=== PATIENT | male | born 1950 | race Caucasian/White ===

== ENCOUNTER 2017-01-26 17:13 | Inpatient (IN) | payer MEDICARE, MEDICAID ==
[~2017-01-26] VITALS: Ht 167.6 cm; Wt 75.3 kg
[2017-01-26 18:00] VITALS: BP 151/88
--- NOTE | 2017-01-26 18:44 | NUR ---
TELE-RN ADMITTING NOTES ADMITTED PT TO UNIT [facility]IA [facility] DIRECT FROM [facility]. A/O X3 AND VERBALLY RESPONSIVE. DR CANNON MADE AWARE OF PT ARRIVAL TO UNIT. PT WITH DIAGNOSIS OF SOB AND AFIB WITH SIGNIFICANT DIAGNOSIS OF CKD, CAD, CHF, ASTHMA, AFIB, GOUT, WITH HX OF CVA IN THE PAST. PT PLACED ON 02 VIA N/C AT 2LPM, NOTED WITH MILD SOB WITH SP02 OF 96%. V/S TAKEN BP 151/88MMHG, HR 90, R 19, T 98.8F. PT ON TELE MONITORING WITH CURRENT READINGS OF AFIB WITH PAC'S WITH HR B/W 90-102, NO C/O CHEST PAIN VOICED. PT NOTED WITH OCCASIONAL COUGH WITH PINKISH TINGED SPUTUM. BELONGINGS CHECKED, COUNTED AND SIGNED FORM BY PT. PT ORIENTED TO UNIT. PLACED BED IN LOW/LOCKED POSITION. CALL LIGHT KEPT WITHIN REACH. ALL SAFETY MEASURES KEPT IN PLACED. WILL CONTINUE TO MONITOR PT AND WILL ENDORSED TO HOME HEALTH RN FOR MAHAMED.
[2017-01-26] MEDS ORDERED: DIGO125T PO (18:46)
[2017-01-26] MEDS ORDERED: FURO20TA4 PO (18:46)
[2017-01-26] MEDS ORDERED: COLC0.6C3 PO (18:46)
[2017-01-26] MEDS ORDERED: AMLO10TA2 PO (18:46)
[2017-01-26] MEDS ORDERED: ATOR40TA PO (18:46)
[2017-01-26] MEDS ORDERED: ALBU18HF2 IH (18:46)
[2017-01-26] MEDS ORDERED: APIX2.5T PO (18:46)
[2017-01-26] MEDS ORDERED: METO25TA3 PO (18:46)
[2017-01-26] MEDS ORDERED: LISI-607 PO (18:46)
[2017-01-26] MEDS ORDERED: FLUT1DIS IH (18:46)
[2017-01-26] MEDS ORDERED: FLUT16SP16 NS (18:46)
[2017-01-26] MEDS ORDERED: ISOS60TA4 PO (18:46)
[2017-01-26 18:48] VITALS: BP 151/88
[2017-01-26] MEDS ORDERED: MAG HYDROX/AL HYDROX/SIMETH 30 ML UDC PO PRN (19:00)
[2017-01-26] MEDS ORDERED: ENOXAPARIN SODIUM 40 MG/0.4 ML DISP.SYRIN SQ SCH (19:00)
[2017-01-26] MEDS ORDERED: ACETAMINOPHEN 325 MG TABLET PO PRN (19:00)
[2017-01-26] MEDS ORDERED: ZOLPIDEM TARTRATE 5 MG TABLET PO PRN (19:00)
[2017-01-26] MEDS ORDERED: HYDROCODONE/APAP 5/325MG 1 EACH TABLET PO PRN (19:00)
[2017-01-26] MEDS ORDERED: Z GUARD REMEDY 2 OZ OINT TP PRN (19:00)
[2017-01-26] MEDS ORDERED: ONDANSETRON HCL/PF 4 MG/2 ML VIAL IVP PRN (19:00)
[2017-01-26] MEDS ORDERED: MAGNESIUM HYDROXIDE 30 ML UDC PO PRN (19:00)
--- NOTE | 2017-01-26 19:50 | NUR ---
DIRECTOR STRATEGIC ACCOUNT MANAGEMENT NOTE: PATIENT RESTING IN BED, NO ACUTE DISTRESS NOTED. BREATHING EVEN AND UNLABORED, NO SOB NOTED AT THIS TIME. OXYGEN IN PLACE VIA NC AT 2 LPM. TELE READING AFIB UNCONTROLLED, WITH HR RANGING FROM 100 TO 120.IV TO RAC IN PLACE. CALLED PHARMACY TO VERIFY MEDICATIONS AND IF BLOOD PRESSURE MEDICATIONS ARE TO START TONIGHT. PATIENT BLOOD PRESSURE 177/98, HR 110, PATIENT DENIES HYPERTENSIVE SYMPTOMS AT THIS TIME. BED LOCKED AND IN LOWEST POSITION, CALL LIGHT IN REACH. WILL CONTINUE TO MONITOR.
[2017-01-26] MEDS: METOPROLOL SUCCINATE 25 MG TAB.SR.24H PO SCH (20:14)
[2017-01-26] MEDS: LISINOPRIL (5MG) 5 MG TABLET PO SCH (20:14)
[2017-01-26 20:18] VITALS: BP 177/98
[2017-01-26] MEDS ORDERED: ALBUTEROL FS 2.5 MG/3 ML VIAL.NEB ONE (20:38)
[2017-01-26] MEDS: CEFTRIAXONE 1 G in IV D5W 50 ML IV SCH (21:09)
[2017-01-26 22:00] VITALS: BP 168/107
[2017-01-26] MEDS: AZITHROMYCIN 500 MG in IV D5W 250 ML IV SCH (22:19)
--- NOTE | 2017-01-26 22:30 | NUR ---
MARKETING OPERATIONS SPECIALIST NOTE: PATIENT COMPLAINS OF PAIN TO BACK 09/26, NORCO 5/325MG ORAL GIVEN PER MD ORDER. WILL CONTINUE TO MONITOR.
[2017-01-26] MEDS ORDERED: FUROSEMIDE 40 MG/4 ML VIAL IV ONE (23:00)
[2017-01-26] MEDS ORDERED: FUROSEMIDE 40 MG/4 ML VIAL ONE (23:29)
--- NOTE | 2017-01-26 23:30 | NUR ---
BOOKKEEPING CLERK NOTE: PATIENT TROPONIN LEVEL 0.845 AND BLOOD PRESSURE ELEVATED AT 168/110, HR 100-120. CALLED THE [facility], SPOKE TO KELSEA RALPH REGARDING TROPONIN LEVEL AND BLOOD PRESSURE. RECEIVE ORDER FOR LASIX 40MG IV PUSH ONCE. ORDER NOTED AND CARRIED OUT. INFORMED KELSEA RALPH ALSO THAT PATIENT HAS ANOTHER TROPONIN LEVEL TO BE DRAWN AT 0100, AND PER KELSEA RALPH NO NEED TO CALL UNLESS LEVEL IS GREATER THAT 1.1. WILL CONTINUE TO MONITOR.
[2017-01-26 23:57] VITALS: BP 127/73
--- NOTE | 2017-01-27 01:27 | NUR ---
RN NOTES: RECEIVED CRITICAL LAB VALUE, TROPONIN: 0.813, DECREASED SLIGHTLY FROM EARLIER TROP RESULT OF 0.845.
[2017-01-27] MEDS ORDERED: ALBUTEROL FS 2.5 MG/3 ML VIAL.NEB NEB PRN (01:30)
[2017-01-27 03:53] VITALS: BP 153/97
--- NOTE | 2017-01-27 06:10 | NUR ---
HOUSE REPAIRER NOTE: PATIENT RESTING IN BED, NO ACUTE DISTRESS NOTED. BREATHING EVEN AND UNLABORED, NO SOB NOTED AT THIS TIME. OXYGEN IN PLACE VIA NC AT 2 LPM. TELE READING AFIB WITH HR RANGING FROM 80 TO 120. IV TO RAC IN PLACE. BED LOCKED AND IN LOWEST POSITION, CALL LIGHT IN REACH. WILL ENDORSE TO DAY NURSE TO CONTINUE WITH PLAN OF CARE.
[2017-01-27 07:10] VITALS: BP 157/94
[2017-01-27 07:54] LABS: BASOPHILS % (AUTO) 0.1 % (0.0-2.0); EOSINOPHILS # (AUTO) 0.4 /CMM (0.0-0.7); EOSINOPHILS % (AUTO) 4.3 % (0.0-6.0); HEMATOCRIT 44 % (39-51); LYMPHOCYTES # (AUTO) 0.9 /CMM (0.8-4.8); LYMPHOCYTES % (AUTO) 10.3 % (20.0-44.0); MEAN CORPUSCULAR HEMOGLOBIN 28 PG (26.0-33.0); MEAN CORPUSCULAR HGB CONC 32 g/dl (31.0-36.0); MEAN CORPUSCULAR VOLUME 87 fL (80-96); MONOCYTES # (AUTO) 0.6 /CMM (0.1-1.30); MONOCYTES % (AUTO) 7.3 % (2.0-12.0); NEUTROPHILS # (AUTO) 6.5 /CMM (1.8-8.9); PLATELET COUNT (AUTO) 186 /CMM (150-450); RDW COEFFICIENT OF VARIATION 17.2 (11.5-15.0); RED BLOOD CELL COUNT(AUTO) 4.99 MIL/uL (4.5-6.0); WHITE BLOOD COUNT (AUTO) 8.3 K/uL (4.3-11.0)
[2017-01-27 08:00] VITALS: BP 152/92
--- NOTE | 2017-01-27 08:00 | NUR ---
HEALTH SCIENCES MANAGER AM NOTES PATIENT RESTING IN BED, NO ACUTE DISTRESS NOTED. BREATHING EVEN AND UNLABORED, NO SOB OR C/O PAIN AT THIS TIME. OXYGEN IN PLACE VIA NC AT 2 LPM. TELE READING AFIB UNCONTROLLED, WITH HR RANGING FROM 100 TO 120.IV TO RAC IN PLACE. BED LOCKED AND IN LOWEST POSITION, CALL LIGHT IN REACH. WILL CONTINUE TO MONITOR.
[2017-01-27 08:15] LABS: CALCIUM, SERUM 9.4 mg/dL (8.5-10.1); MAGNESIUM 1.7 mg/dL (1.8-2.4); PHOSPHORUS 3.9 mg/dL (2.5-4.9); POTASSIUM 3.6 mmol/L (3.5-5.1)
[2017-01-27 08:18] LABS: THYROID STIMULATING HORMONE 0.755 uIU/mL (0.358-3.74)
[2017-01-27] MEDS ORDERED: FUROSEMIDE 40 MG/4 ML VIAL IV SCH (09:00)
[2017-01-27] MEDS: FLUTICASONE/VILANTEROL 1 EACH BLST.W.DEV IH SCH (09:34)
[2017-01-27] MEDS: LISINOPRIL (5MG) 5 MG TABLET PO SCH (09:35)
[2017-01-27] MEDS: AMLODIPINE BESYLATE 10 MG TABLET PO SCH (09:35)
[2017-01-27] MEDS: FLUTICASONE PROPIONATE 16 GM BOTTLE NS SCH (09:36)
[2017-01-27] MEDS: ISOSORBIDE MONONITRATE (30MG) 30 MG TAB.SR.24H PO SCH (09:37)
[2017-01-27] MEDS: METOPROLOL SUCCINATE 25 MG TAB.SR.24H PO SCH (09:37)
[2017-01-27] MEDS ORDERED: Magnesium 1GM/D5W 100ML PREMIX 100 ML IV SCH (11:55)
[2017-01-27 12:00] VITALS: BP 116/67
[2017-01-27] MEDS: DIGOXIN 0.125 MG TABLET PO SCH (12:59)
--- NOTE | 2017-01-27 13:42 | NUR ---
Social service consult requested by outpatient case manager Umesh for possible homelessness. Pt. is a 66 year old male who was admitted to [facility] for pneumonia/Atrial flutter. SW met with pt. bedside. Pt. is alert and oriented x 4. Pt. was cooperative and pleasant with SW during the assessment. Pt. states he resides at [facility] located at [address] [place] [address]. [place] [id number] . Pt. states he has been residing there for the past four months. Prior to living there, pt. was residing in [place]. Pt. stated, he was evicted from [place] and ended up in [facility]. Pt. states he [place] not like the [place]. [facility] is assisting pt. in getting a voucher for permanent housing. Pt. denies using drugs and alcohol and smoking cigarettes or marijuana. Pt's emergency contact is his brother Be . Pt. denies suicidal and homicidal ideations and visual/auditory hallucinations at this time. Pt. does not have a history of psychiatric hospitalizations. Pt. will require taxi transportation upon discharge to [facility] located at [address] [place] [address]. [place] [id number]. No other social service needs are requested at this time. SW is available, if needed.
[2017-01-27 16:00] VITALS: BP 111/67
[2017-01-27] MEDS: ATORVASTATIN 40 MG TABLET PO SCH (17:59)
--- NOTE | 2017-01-27 19:30 | NUR ---
RN NOTES RECEIVED PATIENT IN BED ASLEEP, EASILY AROUSABLE, AO X 3, ABLE TO MAKE NEEDS KNOWN. NO ACUTE DISTRESS NOTED. DENIES ANY PAIN AT THIS TIME. IV SITE PATENT, INTACT; FLUSHED. ON LOW BED WITH BILATERAL UPPER SIDE RAILS UP. CALL LIGHT WITHIN EASY REACH. WILL CONTINUE TO MONITOR.
[2017-01-27 20:00] VITALS: BP 112/72
[2017-01-27] MEDS: CEFTRIAXONE 1 G in IV D5W 50 ML IV SCH (21:18)
[2017-01-27] MEDS: APIXABAN 2.5 MG TABLET PO SCH (21:18)
[2017-01-27] MEDS: AZITHROMYCIN 500 MG in IV D5W 250 ML IV SCH (22:50)
[2017-01-28] VITALS: BP 112/65
[2017-01-28 04:00] VITALS: BP 118/81
--- NOTE | 2017-01-28 06:10 | NUR ---
RN NOTES PATIENT ASLEEP, EASILY AROUSABLE. RESPIRATIONS EVEN. NO SIGNS OF PAIN NOTED. DUE MEDS GIVEN WITH NO ASE NOTED. NEEDS ATTENDED. SAFETY PRECAUTIONS AND COMFORT MEASURES IN PLACE. WILL GIVE REPORT TO DAY SHIFT FOR CONTINUITY OF CARE.
[2017-01-28 07:19] VITALS: BP_SYST 132; BP_SYST 156; BP_DIAS 72; BP_DIAS 80
[2017-01-28 07:41] LABS: BASOPHILS # (AUTO) 0.1 /CMM (0.0-0.2); BASOPHILS % (AUTO) 0.9 % (0.0-2.0); EOSINOPHILS # (AUTO) 0.4 /CMM (0.0-0.7); EOSINOPHILS % (AUTO) 5.9 % (0.0-6.0); HEMATOCRIT 43 % (39-51); LYMPHOCYTES # (AUTO) 0.8 /CMM (0.8-4.8); LYMPHOCYTES % (AUTO) 12.3 % (20.0-44.0); MEAN CORPUSCULAR HEMOGLOBIN 28 PG (26.0-33.0); MEAN CORPUSCULAR HGB CONC 33 g/dl (31.0-36.0); MEAN CORPUSCULAR VOLUME 87 fL (80-96); MONOCYTES # (AUTO) 0.7 /CMM (0.1-1.30); MONOCYTES % (AUTO) 10.4 % (2.0-12.0); NEUTROPHILS # (AUTO) 4.8 /CMM (1.8-8.9); NEUTROPHILS % (AUTO) 70.5 % (43.0-81.0); PLATELET COUNT (AUTO) 216 /CMM (150-450); RDW COEFFICIENT OF VARIATION 16.3 (11.5-15.0); RED BLOOD CELL COUNT(AUTO) 4.99 MIL/uL (4.5-6.0); WHITE BLOOD COUNT (AUTO) 6.8 K/uL (4.3-11.0)
--- NOTE | 2017-01-28 08:00 | NUR ---
RAILCAR CARPENTER AM NOTES PATIENT RESTING IN BED, NO ACUTE DISTRESS NOTED. BREATHING EVEN AND UNLABORED, NO SOB OR C/O PAIN AT THIS TIME. OXYGEN IN PLACE VIA NC AT 2 LPM. TELE READING AFIB UNCONTROLLED, WITH HR RANGING FROM 100 TO 120.IV TO RAC IN PLACE. BED LOCKED AND IN LOWEST POSITION, CALL LIGHT IN REACH. WILL CONTINUE TO MONITOR.
[2017-01-28 08:09] LABS: ALBUMIN 2.8 g/dL (3.4-5.0); BILIRUBIN,TOTAL 0.7 mg/dL (0.2-1.0); CALCIUM, SERUM 9.2 mg/dL (8.5-10.1); MAGNESIUM 2.3 mg/dL (1.8-2.4); PHOSPHORUS 3.4 mg/dL (2.5-4.9); POTASSIUM 3.6 mmol/L (3.5-5.1); TOTAL PROTEIN, SERUM 6.4 g/dL (6.4-8.2)
[2017-01-28 08:11] LABS: TROPONIN I 0.711 ng/mL (0.00-0.056)
[2017-01-28] MEDS: FLUTICASONE/VILANTEROL 1 EACH BLST.W.DEV IH SCH (09:14)
[2017-01-28] MEDS: ISOSORBIDE MONONITRATE (30MG) 30 MG TAB.SR.24H PO SCH (09:14)
[2017-01-28] MEDS: LISINOPRIL (5MG) 5 MG TABLET PO SCH (09:14)
[2017-01-28] MEDS: AMLODIPINE BESYLATE 10 MG TABLET PO SCH (09:14)
[2017-01-28] MEDS: FLUTICASONE PROPIONATE 16 GM BOTTLE NS SCH (09:15)
[2017-01-28] MEDS: APIXABAN 2.5 MG TABLET PO SCH ×2 (09:20→17:26)
[2017-01-28] MEDS: METOPROLOL SUCCINATE 50 MG TAB.SR.24H PO SCH ×2 (09:23→17:25)
[2017-01-28] MEDS: DIGOXIN 0.125 MG TABLET PO SCH (12:03)
[2017-01-28 16:18] VITALS: BP 118/68
[2017-01-28] MEDS ORDERED: METOPROLOL SUCCINATE 50 MG TAB.SR.24H PO SCH (17:00)
[2017-01-28] MEDS: ATORVASTATIN 40 MG TABLET PO SCH (17:25)
--- NOTE | 2017-01-28 18:00 | NUR ---
PT AMBULATING IN THE HALLWAY.DENYING ANY PAIN OR DISTRESS.CALL LIGHT WITHIN REACH.
--- NOTE | 2017-01-28 19:30 | NUR ---
RN INITIAL NOTES: RECEIVED REPORT FROM DAY RN, PT IN BED, AWAKE, A/O X3 ON RA RESPIRATION EVEN AND UNLABORED, DENIES ANY PAIN OR DISCOMFORT AT THIS TIME, IV ACCESS PATENT AND FLUSHING WELL, ON HL. SAFETY PRECAUTIONS FOR FALL INITIATED CALL LIGHT IN REACH, WILL CONTINUE TO MONITOR
[2017-01-28 20:00] VITALS: BP 104/68
[2017-01-28] MEDS: CEFTRIAXONE 1 G in IV D5W 50 ML IV SCH (21:52)
[2017-01-28] MEDS: AZITHROMYCIN 250 MG TABLET PO SCH (21:55)
--- NOTE | 2017-01-29 06:40 | NUR ---
RN CLOSING NOTES: PT IN BED, AWAKE, REMAINS A/O X3, ON RA DENIES ANY CHEST PAIN OR DISCOMFORT AT THIS TIME, IV ACCESS REMAINS PATENT AND FLUSHING WELL, ON HL. VS REMAINS STABLE, NEEDS ATTENDED. KEPT COMFORTABLE. SAFETY PRECAUTIONS FOR FALL REMAINS ENGAGED, CALL LIGHT IN REACH, WILL ENDORSE TODAY RN FOR MAHAMED.
--- NOTE | 2017-01-29 07:49 | NUR ---
RN NOTES RECEIVED PT. PT IS STABLE AND RESTING IN BED. A/OX3. NO S/S OF RESP DISTRESS, NO C/O PAIN AT THIS TIME. PT IS ON RA, O2 SAT WNL. IV ACCESS ON RIGHT AC 20G, SL. PER COMMUTATOR TESTER REPORT, IF D/C TODAY 01/29 PT TO F/U WITH DR. SAMS WITHIN ONE WEEK. IF STAYING, PT WILL HAVE STRESS TEST ON TUESDAY 01/30. SAFETY MEASURES IN PLACE, CALL LIGHT WITHIN REACH. WILL CONTINUE TO MONITOR.
[2017-01-29 08:00] VITALS: BP 106/78
[2017-01-29] MEDS: FLUTICASONE/VILANTEROL 1 EACH BLST.W.DEV IH SCH (08:50)
[2017-01-29] MEDS: FLUTICASONE PROPIONATE 16 GM BOTTLE NS SCH (08:51)
[2017-01-29] MEDS: APIXABAN 2.5 MG TABLET PO SCH ×2 (08:51→18:27)
[2017-01-29] MEDS: ISOSORBIDE MONONITRATE (30MG) 30 MG TAB.SR.24H PO SCH (08:53)
[2017-01-29] MEDS: LISINOPRIL (5MG) 5 MG TABLET PO SCH (09:00)
[2017-01-29] MEDS: METOPROLOL SUCCINATE 50 MG TAB.SR.24H PO SCH ×2 (09:00→17:00)
[2017-01-29] MEDS: AMLODIPINE BESYLATE 10 MG TABLET PO SCH (09:00)
[2017-01-29 13:00] VITALS: BP 116/69
[2017-01-29] MEDS: DIGOXIN 0.125 MG TABLET PO SCH (13:04)
[2017-01-29] MEDS: ATORVASTATIN 40 MG TABLET PO SCH (18:27)
--- NOTE | 2017-01-29 18:49 | NUR ---
RN CLOSING NOTES PT IN BED RESTING. A/OX4. NO RESP DISTRESS OR PAIN. PT SCHEDULED FOR STRESS TEST TOMORROW. CONSENT STILL PENDING. PT TO BE NPO AT MIDNIGHT. ALL PT NEEDS ANTICIPATED AND MET. SAFETY MEASURES IN PLACE, CALL LIGHT WITHIN REACH. WILL ENDORSE TO SOFTWARE MAINTENANCE ENGINEER FOR MAHAMED.
[2017-01-29 20:00] VITALS: BP 112/65
[2017-01-29] MEDS: CEFTRIAXONE 1 G in IV D5W 50 ML IV SCH (20:46)
[2017-01-29] MEDS: AZITHROMYCIN 250 MG TABLET PO SCH (20:48)
[2017-01-30 08:00] VITALS: BP 139/81
--- NOTE | 2017-01-30 08:00 | NUR ---
m/s director global development: initial assessment received pt in bed awake, a/ox4; ambulatory. remains npo, pt for stress test this morning. no c/o pain or any discomfort. instructed to call for assistance. will continue to monitor.
[2017-01-30] MEDS: FLUTICASONE/VILANTEROL 1 EACH BLST.W.DEV IH SCH (08:48)
[2017-01-30] MEDS: FLUTICASONE PROPIONATE 16 GM BOTTLE NS SCH (08:48)
[2017-01-30 08:49] VITALS: BP 139/81
[2017-01-30] MEDS: ISOSORBIDE MONONITRATE (30MG) 30 MG TAB.SR.24H PO SCH (08:49)
[2017-01-30] MEDS: AMLODIPINE BESYLATE 10 MG TABLET PO SCH (08:49)
[2017-01-30] MEDS: LISINOPRIL (5MG) 5 MG TABLET PO SCH (08:49)
[2017-01-30] MEDS: METOPROLOL SUCCINATE 50 MG TAB.SR.24H PO SCH (08:50)
[2017-01-30] MEDS: APIXABAN 2.5 MG TABLET PO SCH (08:50)
[2017-01-30] MEDS ORDERED: LEVO500T15 PO (10:13)
--- NOTE | 2017-01-30 10:15 | NUR ---
m/s billet worker: md visit seen and examined by dr. oleary with order to d'c home if stress test is negative. order acknowledged. pt aware. pt remains npo. will continue to monitor.
[2017-01-30] MEDS ORDERED: MUPIROCIN OINT 2% 22 GM TUBE SCH (10:30)
--- NOTE | 2017-01-30 10:30 | NUR ---
m/s cabin furnishings installer: notes down for stress test via wheelchair at this time.
[2017-01-30] MEDS ORDERED: REGADENOSON 0.4 MG/5 ML DISP.SYRIN IVP ONE (11:00)
--- NOTE | 2017-01-30 11:30 | NUR ---
m/s grinder hand: notes back from stress test as this time. late breakfast served.
--- NOTE | 2017-01-30 12:30 | NUR ---
m/s saddle lining stitcher: notes taken down for phase 2 stress test. will monitor.
[2017-01-30] MEDS: DIGOXIN 0.125 MG TABLET PO SCH (13:30)
--- NOTE | 2017-01-30 15:00 | NUR ---
m/s shoe turner: notes stress test resulted and dr. peter was called by dr. castillo. cn aware. pt made aware and okay to go home today.
--- NOTE | 2017-01-30 15:45 | NUR ---
m/s rubber vulcanizing machine operator: d'c instructions discharged instructions given with f/u appt with dr. peter next week to pt and verbalized understanding. pt will go to [facility] in [place]. voucher provided for taxi to use. h/l removed with tip intact with no bleeding, no redness, and no bleeding noted. all d'c papers copy given to pt and all belongings and valuables returned.
--- NOTE | 2017-01-30 16:15 | NUR ---
m/s sleeve maker: discharged discharged to home via taxi with voucher with all belongings/valuables and d'c papers in stable condition.
== END 2017-01-30 16:17 | disposition home or self-care (01) | DRG 190 ==
LOC: MED 17:13 → TELE 20:18 → MED 01-28 10:52
DX: I21.A1 Myocardial infarction type 2 (principal); J15.9 Unspecified bacterial pneumonia; D68.59 Other primary thrombophilia; I13.0 Hypertensive heart and chronic kidney disease with heart failure and stage 1 through stage 4 chronic kidney disease, or unspecified chronic kidney disease; I50.32 Chronic diastolic (congestive) heart failure; I48.91 Unspecified atrial fibrillation; N18.3 Chronic kidney disease, stage 3 (moderate); I25.10 Atherosclerotic heart disease of native coronary artery without angina pectoris; I25.2 Old myocardial infarction; M10.9 Gout, unspecified; Z86.73 Personal history of transient ischemic attack (TIA), and cerebral infarction without residual deficits; Z79.01 Long term (current) use of anticoagulants; Z87.891 Personal history of nicotine dependence; Z98.61 Coronary angioplasty status; J40 Bronchitis, not specified as acute or chronic
CPT/HCPCS: 36415; 71010-TC; 76770-TC; 80048-TC; 80053-TC; 80061-TC; 80162-TC; 83735-TC; 83880; 84100-TC; 84443-TC; 84484-TC; 85025-TC; 87081-TC; 93307-TC; A9502; J0456; J0696; J1940; J2785; J3475; J7030; J7050; J7060; Z7610